=== PATIENT | female | born 2005 | race Two or more races ===

== ENCOUNTER 2024-06-13 04:16 | Inpatient (IN) | payer BC, MEDICAID ==
[2024-06-13] MEDS ORDERED: Carboprost Tromethamine 250 MCG/1 mL Vial IM PRN (04:47)
[2024-06-13] MEDS ORDERED: Butorphanol 2 MG/ML SDV IVPUSH PRN (04:47)
[2024-06-13] MEDS ORDERED: Lidocaine 1% 50 ML MDV INJECT PRN (04:47)
[2024-06-13] MEDS ORDERED: Water For Irrigation,Sterile 1,000 ML Container IRR PRN (04:47)
[2024-06-13] MEDS ORDERED: Sodium Chloride 0.9% 2.5 ML Syringe FLUSH PRN ×2 (04:47→04:52)
[2024-06-13] MEDS ORDERED: Sodium Chloride 0.9% 10 ML Syringe FLUSH PRN ×2 (04:47→04:52)
[2024-06-13] MEDS ORDERED: Methylergonovine 0.2 MG/1 ML Amp IM PRN (04:47)
[2024-06-13] MEDS ORDERED: Sodium Chloride 0.9% 20 ML SDV IV PRN ×2 (04:47→04:52)
[2024-06-13] MEDS ORDERED: Labetalol 100 MG/20 ML MDV IVPUSH PRN (04:52)
[2024-06-13 05:18] LABS: HEMATOCRIT 33.5 % (37.0-47.0); MEAN CORPUSCULAR HEMOGLOBIN 27.6 pg (28.0-32.0); MEAN CORPUSCULAR HGB CONC 32.8 g/dL (32.0-36.0); MEAN PLATELET VOLUME 10.5 fL (9.4-12.3); PLATELET COUNT,PLT 259 K/uL (150-400); RED BLOOD CELL COUNT 3.99 M/uL (4.10-5.30)
[2024-06-13] MEDS: Lactated Ringers 1,000 ML IV SCH (05:18)
[2024-06-13 05:45] LABS: A/G RATIO 0.8 (0.9-1.6); ALANINE AMINOTRANSFERASE,ALT 17 IU/L (14-63); ALKALINE PHOSPHATASE 271 U/L (46-116); ASPARTATE AMNIOTRANSFERASE,AST 20 IU/L (15-37); BILIRUBIN TOTAL 0.2 mg/dL (0.2-1.0); BLOOD UREA NITROGEN,BUN 14 mg/dL (7.0-18.0); CALCIUM 9.1 mg/dL (8.5-10.1); CARBON DIOXIDE,CO2 22.4 mmol/L (21.0-32.0); CHLORIDE,CL 102 mmol/L (98-107); CREATININE 0.6 mg/dL (0.6-1.0); GLUCOSE RANDOM 96 mg/dL (74-106); POTASSIUM,K 3.7 mmol/L (3.5-5.1); SODIUM,NA 134 mmol/L (136-145)
[2024-06-13 05:49] LABS: ESTIMATED GFR 132 mL/min (>60)
[2024-06-13] MEDS: Ropivacaine HCl/PF 400 MG in Premix Bag 1 BAG EPIDUR SCH (05:50)
[2024-06-13] MEDS ORDERED: dexmedeTOMIDine HCl 200 MCG/2 ML SDV ONE (05:51)
[2024-06-13] MEDS ORDERED: Phenylephrine HCl In 0.9% NaCl 1 MG/10 ML Syringe ONE (05:51)
[2024-06-13] MEDS ORDERED: Ropivacaine HCl/PF 200 ML ONE (05:51)
[2024-06-13] MEDS ORDERED: dexmedeTOMIDine HCl 200 MCG/2 ML SDV EPIDUR SCH (06:00)
[2024-06-13] MEDS ORDERED: Phenylephrine HCl In 0.9% NaCl 1 MG/10 ML Syringe IVPUSH PRN (06:00)
[2024-06-13] MEDS ORDERED: ePHEDrine 50 MG/ML SDV IVPUSH PRN (06:00)
[2024-06-13 07:26] LABS: CREATININE,URINE RAND 68.4 mg/dL; PROTEIN CREATININE RATIO,URINE 0.8; PROTEIN,URINE RANDOM 51.5 mg/dL (<11.9)
[2024-06-13] MEDS: Oxytocin/0.9 % Sodium Chloride 30 UNIT/500 ML BAG IV SCH (13:45)
[2024-06-13] MEDS: Tranexamic Acid in NACL,ISO-OS 1,000 MG/100 ML Bag IV ONE (14:05)
[2024-06-13] MEDS ORDERED: Simethicone 80 MG Tab.Chew PO PRN (14:20)
[2024-06-13] MEDS ORDERED: Oxytocin 10 Units/1 ML SDV IM PRN (14:20)
[2024-06-13] MEDS ORDERED: Docusate Sodium 100 MG Cap PO PRN (14:20)
[2024-06-13 14:45] LABS: PH,UMBILICAL ARTERIAL 7.145 (7.18-7.38); PH,UMBILICAL VENOUS 7.231 (7.25-7.45)
[2024-06-13] MEDS: Misoprostol 200 MCG Tab PO PRN (19:21)
[2024-06-13] MEDS: Acetaminophen 500 MG Tab PO PRN (20:20)
[2024-06-13] MEDS: Ibuprofen 800 MG Tab PO PRN (23:48)
[2024-06-14 06:14] LABS: BASOPHILS ABSOLUTE AUTO 0.03 K/uL (0.00-0.20); BASOPHILS PERCENT AUTO 0.3 % (0.0-1.0); EOSINOPHILS ABSOLUTE AUTO 0.05 K/uL (0.00-0.45); EOSINOPHILS PERCENT AUTO 0.5 % (0.0-6.0); HEMOGLOBIN 9.5 g/dL (12.0-16.0); IMMATURE GRAN ABSOLUTE AUTO 0.05 K/uL (0.00-0.05); IMMATURE GRAN PERCENT AUTO 0.5 % (0.0-0.4); LYMPHOCYTES ABSOLUTE AUTO 2.22 K/uL (1.00-4.80); LYMPHOCYTES PERCENT AUTO 20.9 % (24.0-44.0); MEAN CORPUSCULAR HEMOGLOBIN 26.8 pg (28.0-32.0); MEAN CORPUSCULAR HGB CONC 31.7 g/dL (32.0-36.0); MEAN CORPUSCULAR VOLUME 84.7 fL (83.0-99.0); MEAN PLATELET VOLUME 10.7 fL (9.4-12.3); MONOCYTES ABSOLUTE AUTO 0.68 K/uL (0.00-0.80); MONOCYTES PERCENT AUTO 6.4 % (0.0-8.0); NEUTROPHILS ABSOLUTE AUTO 7.58 K/uL (1.80-7.70); NEUTROPHILS PERCENT AUTO 71.4 % (41.0-71.0); PLATELET COUNT,PLT 201 K/uL (150-400); RED BLOOD CELL COUNT 3.54 M/uL (4.10-5.30); WHITE BLOOD CELL COUNT,WBC 10.61 K/uL (3.9-11.3)
[2024-06-14] MEDS: Lanolin 100% Cream 7 GM Tube TOP PRN (12:32)
[2024-06-14] MEDS: Witch Hazel Medicated Pads 40/Jar TOP PRN (14:22)
[2024-06-14] MEDS: Benzocaine/Menthol 20%-0.5% Spray 78 GM Cannister TOP PRN (14:22)
== END 2024-06-14 17:10 | disposition home or self-care (01) | DRG 560 ==
LOC: MW.OBCHECK 04:16 → MW.OB 04:17 → MW.OBCHECK 04:47 → OBSVTOIN 14:20 → MW.OB 14:20
PROVIDERS: ADMIT Obstetrics & Gynecology; ATTEND Obstetrics & Gynecology Obstetrics
PROC: 10E0XZZ Delivery of Products of Conception, External Approach (ICD-10-PCS; principal; 2024-06-13)
PROC: 0KQM0ZZ Repair Perineum Muscle, Open Approach (ICD-10-PCS; 2024-06-13)
PROC: 3E0R3BZ Introduction of Anesthetic Agent into Spinal Canal, Percutaneous Approach (ICD-10-PCS; 2024-06-13)
PROC: 00HU33Z Insertion of Infusion Device into Spinal Canal, Percutaneous Approach (ICD-10-PCS; 2024-06-13)
DX: O48.0 Post-term pregnancy (principal); Z37.0 Single live birth; O13.4 Gestational [pregnancy-induced] hypertension without significant proteinuria, complicating childbirth; O70.1 Second degree perineal laceration during delivery; Z3A.40 40 weeks gestation of pregnancy
CPT/HCPCS: 01967; 36415; 51702; 59025; 59409; 80053; 82570; 82803; 84156; 84550; 85025; 85027; 86592; 86850; 86900; 86901; A9270-GY; J2371; J2590; J2795; J3490; J7120